=== PATIENT | female | born 1940 | race Caucasian/White ===

== ENCOUNTER 2016-09-10 22:29 | Inpatient (IN) | payer MEDICARE, OTHER ==
[~2016-09-10] VITALS: Ht 157.5 cm; Wt 68.9 kg
[2016-09-10] MEDS ORDERED: CEFTRIAXONE 1GM BAG (ER ONLY) 50 ML IV ONE ×2 (23:00→23:35)
[2016-09-10] MEDS ORDERED: IV SET PRIMARY 1 EA INFUS.SET MC ONE ×2 (23:13→23:34)
[2016-09-10] MEDS ORDERED: IV NS 0.9% 1,000 ML ONE ×2 (23:13→23:34)
[2016-09-10 23:26] LABS: BASOPHILS % (AUTO) 0.1 % (0.0-2.0); DIFF TOTAL % 100 %; HEMATOCRIT 33 % (33-45); HEMOGLOBIN 10.6 g/dL (11.5-14.8); LYMPHOCYTES # (AUTO) 0.8 /CMM (0.8-4.8); LYMPHOCYTES % (AUTO) 4.7 % (20.0-44.0); MEAN CORPUSCULAR HEMOGLOBIN 30 PG (26.0-33.0); MEAN CORPUSCULAR HGB CONC 33 g/dl (31.0-36.0); MEAN CORPUSCULAR VOLUME 94 fL (82-100); MONOCYTES # (AUTO) 1.1 /CMM (0.1-1.30); MONOCYTES % (AUTO) 6.4 % (2.0-12.0); NEUTROPHILS # (AUTO) 15.9 /CMM (1.8-8.9); NEUTROPHILS % (AUTO) 88.8 % (43.0-81.0); PLATELET COUNT (AUTO) 232 /CMM (150-450); RED BLOOD CELL COUNT(AUTO) 3.47 MIL/uL (4.0-5.2); WHITE BLOOD COUNT (AUTO) 17.9 K/uL (4.3-11.0)
[2016-09-10] MEDS ORDERED: IV NS 0.9% 1,000 ML BAG IV ONE (23:30)
[2016-09-10] MEDS ORDERED: IV SET PRIMARY PUMP SET 1 EA INFUS.SET MC ONE (23:35)
[2016-09-10] MEDS ORDERED: SECONDARY IV SET 1 EA INFUS.SET MC ONE (23:35)
[2016-09-10] MEDS ORDERED: IV NS 0.9% 250 ML IV ONE (23:35)
[2016-09-10 23:47] LABS: TROPONIN I 0.094 ng/mL (0.00-0.056)
[2016-09-10 23:54] LABS: KETONES,URINE NEGATIVE (NEGATIVE); LEUKOCYTE ESTERASE ,URINE 2+ (NEGATIVE); PH,URINE 7.5 (5.0-8.0)
[2016-09-10 23:56] LABS: ALANINE AMINOTRANSFERASE 303 U/L (12-78); ALBUMIN 2.1 g/dL (3.4-5.0); ANION GAP 18 (5-14); ASPARTATE AMINOTRANSFERASE 493 U/L (15-37); BILIRUBIN,DIRECT 0.7 mg/dL (0.0-0.2); BILIRUBIN,TOTAL 1.1 mg/dL (0.2-1.0); CALCIUM, SERUM 8.1 mg/dL (8.5-10.1); CARBON DIOXIDE 22 mmol/L (21-32); CHLORIDE 91 mmol/L (98-107); CREATININE 4.6 mg/dL (0.6-1.3); GLUCOSE 74 mg/dL (74-106); INDIRECT BILIRUBIN 0.4 mg/dL (0.0-1.1); POTASSIUM 5.5 mmol/L (3.5-5.1); SODIUM SERUM 125 mmol/L (136-145); TOTAL PROTEIN, SERUM 5.8 g/dL (6.4-8.2)
[2016-09-10 23:56] LABS: ADD UA MICROSCOPIC YES
[2016-09-10 23:58] LABS: INR 1.11 (0.87-1.13); UREA NITROGEN, BLOOD 82 mg/dL (7-18)
[2016-09-10 23:59] LABS: LACTIC ACID 2.7 mmol/L (0.4-2.0)
[2016-09-11] VITALS (72 sets, daily range): BP systolic 79–138; BP diastolic 23–97
[2016-09-11 00:03] LABS: RBC,URINE NONE SEEN /HPF (0-2)
[2016-09-11 00:04] LABS: ADD URINE CULTURE YES
[2016-09-11 00:18] LABS: *LACTIC ACID REFLEX FLAG YES
[2016-09-11] MEDS ORDERED: IMIPENEM/CILASTATIN 1,000 MG in IV NS 0.9% 250 ML IV ONE (00:30)
[2016-09-11] MEDS ORDERED: NOREPINEPHRINE 4 MG/4 ML AMPUL IV ONE (00:52)
[2016-09-11] MEDS ORDERED: IV D5W 500 ML IV ONE (00:53)
[2016-09-11] MEDS ORDERED: IV SET PRIMARY PUMP SET 1 EA INFUS.SET MC ONE ×5 (00:53→11:00)
[2016-09-11] MEDS ORDERED: NOREPINEPHRINE 8 MG in IV D5W 500 ML IV ONE (01:00)
[2016-09-11] MEDS ORDERED: IV NS 0.9% 250 ML IV ONE (01:34)
[2016-09-11] MEDS ORDERED: IMIPENEM/CILASTATIN 500 MG/VIAL IV ONE (01:34)
[2016-09-11] MEDS ORDERED: HYDROCODONE/APAP 5/325MG 1 EACH TABLET PO PRN (02:30)
[2016-09-11] MEDS ORDERED: MAG HYDROX/AL HYDROX/SIMETH 30 ML UDC PO PRN (02:30)
[2016-09-11] MEDS ORDERED: MAGNESIUM HYDROXIDE 30 ML UDC PO PRN (02:30)
[2016-09-11] MEDS ORDERED: Z GUARD REMEDY 2 OZ OINT TP PRN (02:30)
[2016-09-11] MEDS ORDERED: ONDANSETRON HCL/PF 4 MG/2 ML VIAL IVP PRN (02:30)
[2016-09-11] MEDS ORDERED: ZOLPIDEM TARTRATE 5 MG TABLET PO PRN (02:30)
[2016-09-11] MEDS ORDERED: ACETAMINOPHEN 325 MG TABLET PO PRN (02:30)
[2016-09-11] MEDS ORDERED: Calcium Gluconate 1GM/10ML 9.3 MEQ in IV D5W 250 ML IV ONE (04:00)
[2016-09-11] MEDS ORDERED: INSULIN REGULAR, HUMAN 100 UNIT/ML 10 ML VIAL IV ONE (04:00)
[2016-09-11] MEDS ORDERED: DEXTROSE 50%-WATER 50 ML DISP.SYRIN IVP ONE (04:00)
[2016-09-11] MEDS ORDERED: IV D5W 250 ML IV ONE (04:07)
[2016-09-11] MEDS ORDERED: Calcium Gluconate 0.465 MEQ/ML VIAL IV ONE (04:07)
[2016-09-11] MEDS ORDERED: DEXTROSE 50%-WATER 50 ML DISP.SYRIN ONE (04:08)
[2016-09-11] MEDS ORDERED: IV NS 0.9% 1,000 ML BAG IV ONE (04:30)
[2016-09-11] MEDS ORDERED: IV NS 0.9% 1,000 ML BAG IV PRN ×2 (04:30→07:00)
[2016-09-11] MEDS ORDERED: LORAZEPAM INJ 2 MG/ML VIAL IV PRN (05:00)
[2016-09-11] MEDS ORDERED: IMIPENEM/CILASTATIN 500 MG in IV NS 0.9% 100 ML IV SCH ×2 (06:00→08:00)
[2016-09-11 06:26] LABS: ALBUMIN 1.7 g/dL (3.4-5.0); BILIRUBIN,DIRECT 0.9 mg/dL (0.0-0.2); BILIRUBIN,TOTAL 1.1 mg/dL (0.2-1.0); INDIRECT BILIRUBIN 0.2 mg/dL (0.0-1.1); TOTAL PROTEIN, SERUM 4.9 g/dL (6.4-8.2)
[2016-09-11 06:35] LABS: LACTIC ACID 4.3 mmol/L (0.4-2.0)
[2016-09-11] MEDS ORDERED: NOREPINEPHRINE 16 MG in IV D5W 500 ML IV PRN (07:00)
[2016-09-11] MEDS ORDERED: PANTOPRAZOLE 40 MG TABLET.DR PO SCH (07:30)
[2016-09-11 08:09] LABS: CREATININE 4.1 mg/dL (0.6-1.3); POTASSIUM 4.3 mmol/L (3.5-5.1)
[2016-09-11] MEDS: PANTOPRAZOLE 40 MG VIAL IV SCH (08:40)
[2016-09-11] MEDS ORDERED: CYCL5TAB PO (09:11)
[2016-09-11] MEDS ORDERED: HYDR25TA4 PO (09:11)
[2016-09-11] MEDS ORDERED: FERR325T28 PO (09:11)
[2016-09-11] MEDS ORDERED: ZINC220C8 PO (09:11)
[2016-09-11] MEDS ORDERED: LIRA0.6P2 SQ (09:11)
[2016-09-11] MEDS ORDERED: METO25TA3 PO (09:11)
[2016-09-11] MEDS ORDERED: HYDR-3326 PO (09:11)
[2016-09-11] MEDS ORDERED: ASCO500T9 PO (09:11)
[2016-09-11] MEDS ORDERED: SERT100T12 PO (09:11)
[2016-09-11] MEDS ORDERED: CLOP75TA2 PO (09:11)
[2016-09-11] MEDS ORDERED: GABA-534 PO (09:11)
[2016-09-11] MEDS ORDERED: OMEP20CA10 PO (09:11)
[2016-09-11] MEDS ORDERED: ATOR40TA PO (09:11)
[2016-09-11] MEDS ORDERED: TRAV5DRO EACHEYE (09:11)
[2016-09-11] MEDS ORDERED: DIVA500T2 PO (09:11)
[2016-09-11] MEDS ORDERED: DARI15TA7 PO (09:11)
[2016-09-11] MEDS ORDERED: RANO500T3 PO (09:11)
[2016-09-11] MEDS ORDERED: ALIR75PE SQ (09:11)
[2016-09-11] MEDS ORDERED: AMLO5TAB2 PO (09:11)
[2016-09-11] MEDS ORDERED: LISI-603 PO (09:11)
[2016-09-11] MEDS ORDERED: ASPI81TA2 PO (09:11)
[2016-09-11 09:23] LABS: DIFF TOTAL % 100 %; HEMATOCRIT 28 % (33-45); HEMOGLOBIN 9.1 g/dL (11.5-14.8); LYMPHOCYTES # (AUTO) 0.3 /CMM (0.8-4.8); LYMPHOCYTES % (AUTO) 2.1 % (20.0-44.0); MEAN CORPUSCULAR HEMOGLOBIN 31 PG (26.0-33.0); MEAN CORPUSCULAR HGB CONC 33 g/dl (31.0-36.0); MEAN CORPUSCULAR VOLUME 93 fL (82-100); MONOCYTES # (AUTO) 0.3 /CMM (0.1-1.30); MONOCYTES % (AUTO) 2.4 % (2.0-12.0); NEUTROPHILS # (AUTO) 13.5 /CMM (1.8-8.9); NEUTROPHILS % (AUTO) 95.5 % (43.0-81.0); PLATELET COUNT (AUTO) 176 /CMM (150-450); RED BLOOD CELL COUNT(AUTO) 2.99 MIL/uL (4.0-5.2); WHITE BLOOD COUNT (AUTO) 14.1 K/uL (4.3-11.0)
[2016-09-11] MEDS ORDERED: HYDROGEL DRESSING 90 GM TUBE TP PRN (09:30)
[2016-09-11] MEDS ORDERED: SECONDARY IV SET 1 EA INFUS.SET MC ONE (09:36)
[2016-09-11] MEDS: LINEZOLID RTU BAG 600 MG in PREMIX 1 EA IV SCH ×2 (09:41→21:04)
[2016-09-11] MEDS: HYDROGEL DRESSING 90 GM TUBE TP SCH (10:28)
[2016-09-11] MEDS: ALBUMIN 25% 25 GM in PREMIX 1 EA IV SCH ×3 (10:28→21:02)
[2016-09-11] MEDS: NOREPINEPHRINE 16 MG in IV D5W 500 ML IV PRN ×2 (11:42→21:03)
[2016-09-11 12:04] LABS: ADD UA MICROSCOPIC YES; KETONES,URINE NEGATIVE (NEGATIVE); LEUKOCYTE ESTERASE ,URINE TRACE (NEGATIVE)
[2016-09-11 12:11] LABS: ADD URINE CULTURE YES; CREATININE, URINE 24.6 MG/DL (30.0-125.0); MUCUS,URINE Few /LPF (None Seen); URINE TOTAL PROTEIN 55.3 mg/dL (0-11.9)
[2016-09-11] MEDS: CLOTRIMAZOLE 1% 15 GM TUBE TP SCH (16:05)
[2016-09-11] MEDS: IV NS 0.9% 1,000 ML IV PRN (18:17)
[2016-09-11] MEDS: MEROPENEM 500 MG in IV NS 0.9% 50 ML IV SCH (23:38)
[2016-09-12] VITALS (74 sets, daily range): BP systolic 95–166; BP diastolic 26–90
[2016-09-12] MEDS: ALBUMIN 25% 25 GM in PREMIX 1 EA IV SCH (03:12)
[2016-09-12 05:14] LABS: LDL 8 mg/dL (0-99); TRIGLYCERIDES 158 mg/dL (30-150)
[2016-09-12 05:15] LABS: ANION GAP 19 (5-14); CALCIUM, SERUM 6.9 mg/dL (8.5-10.1); CARBON DIOXIDE 19 mmol/L (21-32); CHLORIDE 93 mmol/L (98-107); CREATININE 4.1 mg/dL (0.6-1.3); GLUCOSE 99 mg/dL (74-106); PHOSPHORUS 6.2 mg/dL (2.5-4.9); POTASSIUM 5.8 mmol/L (3.5-5.1); SODIUM SERUM 125 mmol/L (136-145); UREA NITROGEN, BLOOD 79 mg/dL (7-18)
[2016-09-12 05:19] LABS: HDL CHOLESTEROL < 10 mg/dL (40-60)
[2016-09-12 05:20] LABS: CHOLESTEROL < 50 mg/dL (<200)
[2016-09-12 07:04] LABS: DIFF TOTAL % 100 %; HEMATOCRIT 22 % (33-45); HEMOGLOBIN 7.5 g/dL (11.5-14.8); LYMPHOCYTES # (AUTO) 0.6 /CMM (0.8-4.8); LYMPHOCYTES % (AUTO) 5.1 % (20.0-44.0); MEAN CORPUSCULAR HEMOGLOBIN 31 PG (26.0-33.0); MEAN CORPUSCULAR HGB CONC 34 g/dl (31.0-36.0); MEAN CORPUSCULAR VOLUME 92 fL (82-100); MONOCYTES # (AUTO) 0.8 /CMM (0.1-1.30); MONOCYTES % (AUTO) 6.8 % (2.0-12.0); NEUTROPHILS # (AUTO) 10.3 /CMM (1.8-8.9); NEUTROPHILS % (AUTO) 88.1 % (43.0-81.0); PLATELET COUNT (AUTO) 92 /CMM (150-450); RED BLOOD CELL COUNT(AUTO) 2.41 MIL/uL (4.0-5.2); WHITE BLOOD COUNT (AUTO) 11.7 K/uL (4.3-11.0)
[2016-09-12] MEDS ORDERED: IV NS 0.9% 500 ML IV ONE (08:30)
[2016-09-12] MEDS: HYDROGEL DRESSING 90 GM TUBE TP SCH (08:44)
[2016-09-12] MEDS: LINEZOLID RTU BAG 600 MG in PREMIX 1 EA IV SCH ×2 (08:44→20:24)
[2016-09-12] MEDS: ASPIRIN 81 MG TAB.CHEW GT SCH (08:44)
[2016-09-12] MEDS: PANTOPRAZOLE 40 MG VIAL IV SCH (08:44)
[2016-09-12] MEDS: CLOTRIMAZOLE 1% 15 GM TUBE TP SCH ×2 (08:45→16:56)
[2016-09-12 09:53] LABS: ANISOCYTOSIS 2+; BAND % (MANUAL) 41 % (0.0-5.0); LYMPHOCYTES % (MANUAL) 2 % (16-48); PLATELET ESTIMATE DECREASED; POIKILOCYTOSIS 1+
[2016-09-12] MEDS ORDERED: GABAPENTIN 300 MG CAPSULE PO SCH (10:00)
[2016-09-12] MEDS ORDERED: ASPIRIN 81 MG TAB.CHEW PO SCH (10:00)
[2016-09-12] MEDS ORDERED: ATORVASTATIN 40 MG TABLET GT SCH ×2 (10:00→22:00)
[2016-09-12] MEDS ORDERED: SODIUM POLYSTYRENE SULFONATE 15 G/60 ML BOTTLE PO ONE (10:24)
[2016-09-12] MEDS ORDERED: TRAVOPROST (BENZALKONIUM) 2.5 ML BOTTLE EACHEYE SCH (10:30)
[2016-09-12] MEDS: DIVALPROEX SODIUM 125 MG CAP.SPRINK GT SCH ×2 (10:38→20:24)
[2016-09-12] MEDS: ZINC SULFATE 220 MG CAPSULE PO SCH (10:38)
[2016-09-12] MEDS: FERROUS SULFATE (325 MG) 325 MG/TAB TABLET PO SCH (10:39)
[2016-09-12] MEDS: GABAPENTIN 300 MG CAPSULE PO SCH (10:39)
[2016-09-12] MEDS: CLOPIDOGREL BISULFATE 75 MG TABLET PO SCH (10:39)
[2016-09-12] MEDS: ASCORBIC ACID 500 MG TABLET PO SCH (10:39)
[2016-09-12 10:58] LABS: KETONES,URINE 1+ (NEGATIVE); LEUKOCYTE ESTERASE ,URINE 2+ (NEGATIVE); PH,URINE 6.5 (5.0-8.0)
[2016-09-12 10:59] LABS: URINE SODIUM, RANDOM 11 mmol/l (40-220)
[2016-09-12 11:00] LABS: ADD UA MICROSCOPIC YES
[2016-09-12 11:15] LABS: ADD URINE CULTURE YES; RBC,URINE TOO NUMEROUS TO COUN /HPF (0-2)
[2016-09-12] MEDS: IV NS 0.9% 1,000 ML IV PRN (16:55)
[2016-09-12] MEDS: LACTOBACILLUS RHAMNOSUS GG 1 EACH CAP.SPRINK PO SCH (16:55)
[2016-09-12] MEDS: TRAVOPROST (BENZALKONIUM) 2.5 ML BOTTLE EACHEYE SCH (21:22)
[2016-09-12] MEDS: MEROPENEM 500 MG in IV NS 0.9% 50 ML IV SCH (22:32)
[2016-09-13] VITALS (26 sets, daily range): BP systolic 86–147; BP diastolic 22–90
[2016-09-13 04:31] LABS: BASOPHILS % (AUTO) 0.1 % (0.0-2.0); DIFF TOTAL % 100 %; EOSINOPHILS % (AUTO) 0.2 % (0.0-6.0); HEMATOCRIT 24 % (33-45); HEMOGLOBIN 7.8 g/dL (11.5-14.8); LYMPHOCYTES # (AUTO) 0.7 /CMM (0.8-4.8); LYMPHOCYTES % (AUTO) 3.3 % (20.0-44.0); MEAN CORPUSCULAR HEMOGLOBIN 30 PG (26.0-33.0); MEAN CORPUSCULAR HGB CONC 33 g/dl (31.0-36.0); MEAN CORPUSCULAR VOLUME 94 fL (82-100); MONOCYTES # (AUTO) 0.7 /CMM (0.1-1.30); MONOCYTES % (AUTO) 3.2 % (2.0-12.0); NEUTROPHILS # (AUTO) 20.4 /CMM (1.8-8.9); NEUTROPHILS % (AUTO) 93.2 % (43.0-81.0); PLATELET COUNT (AUTO) 102 /CMM (150-450); RED BLOOD CELL COUNT(AUTO) 2.56 MIL/uL (4.0-5.2); WHITE BLOOD COUNT (AUTO) 21.9 K/uL (4.3-11.0)
[2016-09-13 04:54] LABS: CALCIUM, SERUM 7.1 mg/dL (8.5-10.1); CREATININE 4.7 mg/dL (0.6-1.3); POTASSIUM 5.7 mmol/L (3.5-5.1)
[2016-09-13 05:12] LABS: PHOSPHORUS 8.4 mg/dL (2.5-4.9)
[2016-09-13 05:13] LABS: BAND % (MANUAL) 15 % (0.0-5.0); LYMPHOCYTES % (MANUAL) 12 % (16-48)
[2016-09-13 05:14] LABS: PLATELET ESTIMATE DECREASED
[2016-09-13 05:15] LABS: ANISOCYTOSIS 1+; BURR CELLS 1+; POIKILOCYTOSIS 1+
[2016-09-13] MEDS: LACTOBACILLUS RHAMNOSUS GG 1 EACH CAP.SPRINK PO SCH (08:36)
[2016-09-13] MEDS: FERROUS SULFATE (325 MG) 325 MG/TAB TABLET PO SCH (08:36)
[2016-09-13] MEDS: DIVALPROEX SODIUM 125 MG CAP.SPRINK GT SCH (08:36)
[2016-09-13] MEDS: ASPIRIN 81 MG TAB.CHEW GT SCH (08:36)
[2016-09-13] MEDS: ZINC SULFATE 220 MG CAPSULE PO SCH (08:36)
[2016-09-13] MEDS: ASCORBIC ACID 500 MG TABLET PO SCH (08:36)
[2016-09-13] MEDS: CLOPIDOGREL BISULFATE 75 MG TABLET PO SCH (08:36)
[2016-09-13] MEDS: PANTOPRAZOLE 40 MG VIAL IV SCH (08:36)
[2016-09-13] MEDS: CLOTRIMAZOLE 1% 15 GM TUBE TP SCH (08:37)
[2016-09-13] MEDS: HYDROGEL DRESSING 90 GM TUBE TP SCH (08:37)
[2016-09-13] MEDS: LINEZOLID RTU BAG 600 MG in PREMIX 1 EA IV SCH (08:38)
[2016-09-13] MEDS ORDERED: SECONDARY IV SET 1 EA INFUS.SET MC ONE (08:50)
[2016-09-13] MEDS ORDERED: FUROSEMIDE 100 MG/10 ML VIAL IV ONE (10:00)
[2016-09-13] MEDS ORDERED: METOLAZONE 2.5 MG TABLET PO ONE (10:00)
[2016-09-13] MEDS: GABAPENTIN 300 MG CAPSULE PO SCH (10:00)
[2016-09-13 10:17] LABS: ABG BASE EXCESS -15.3 mmol/L; ABG HCO3 13.5 mmol/L; ABG PCO2 45.2 mmHg (35.0-45.0); ABG PH 7.093 (7.350-7.450); ABG PO2 87.5 mmHg (75.0-100.0); ABG TOTAL HEMOGLOBIN 8.3 G/dL (12.0-16.0); ALLEN TEST Pass; AaDO2 580.3 mmHg; O2Hb 91.6 % (94.0-97.0)
[2016-09-13] MEDS ORDERED: SODIUM BICARBONATE SYR 50 MEQ/50 ML DISP.SYRIN IV ONE (10:30)
[2016-09-13] MEDS ORDERED: INSULIN REGULAR, HUMAN 100 UNIT/ML 3 ML VIAL IV ONE (11:00)
[2016-09-13] MEDS ORDERED: DEXTROSE 50%-WATER 50 ML DISP.SYRIN IVP ONE (11:00)
[2016-09-13] MEDS ORDERED: MORPHINE SULFATE PF DRIP 250 MG in IV D5W 240 ML IV PRN (14:00)
[2016-09-13] MEDS ORDERED: IV NS 0.9% 1,000 ML BAG IV PRN (14:00)
[2016-09-13] MEDS: LORAZEPAM INJ 2 MG/ML VIAL IV PRN ×2 (14:25→17:17)
[2016-09-13] MEDS ORDERED: SET PCA INFUSE SET 1 EA INFUS.SET MC ONE (14:31)
[2016-09-13] MEDS ORDERED: FUROSEMIDE 40 MG/4 ML VIAL IV SCH (17:00)
[2016-09-13] MEDS: TRAVOPROST (BENZALKONIUM) 2.5 ML BOTTLE EACHEYE SCH (22:00)
[2016-09-13] MEDS ORDERED: TRAVOPROST (BENZALKONIUM) 2.5 ML BOTTLE ONE (22:44)
== END 2016-09-13 23:15 | disposition expired | DRG 871 ==
LOC: ER 22:31 → ICU 09-11 01:50 → MEDSG2 09-13 17:30
PROVIDERS: ADMIT Family Medicine; ATTEND Family Medicine
PROC: 02HV33Z Insertion of Infusion Device into Superior Vena Cava, Percutaneous Approach (ICD-10-PCS; principal; 2016-09-11)
PROC: B548ZZA Ultrasonography of Superior Vena Cava, Guidance (ICD-10-PCS; 2016-09-11)
DX: A41.9 Sepsis, unspecified organism (principal); E43 Unspecified severe protein-calorie malnutrition; I21.4 Non-ST elevation (NSTEMI) myocardial infarction; I50.33 Acute on chronic diastolic (congestive) heart failure; N17.0 Acute kidney failure with tubular necrosis; K72.00 Acute and subacute hepatic failure without coma; R65.21 Severe sepsis with septic shock; G93.41 Metabolic encephalopathy; J69.0 Pneumonitis due to inhalation of food and vomit; E87.2 Acidosis; N17.9 Acute kidney failure, unspecified; I13.0 Hypertensive heart and chronic kidney disease with heart failure and stage 1 through stage 4 chronic kidney disease, or unspecified chronic kidney disease; N39.0 Urinary tract infection, site not specified; I48.92 Unspecified atrial flutter; I69.851 Hemiplegia and hemiparesis following other cerebrovascular disease affecting right dominant side; E22.2 Syndrome of inappropriate secretion of antidiuretic hormone; I50.1 Left ventricular failure, unspecified; E87.5 Hyperkalemia; I25.10 Atherosclerotic heart disease of native coronary artery without angina pectoris; N18.9 Chronic kidney disease, unspecified; Z95.1 Presence of aortocoronary bypass graft; Z66 Do not resuscitate; K82.8 Other specified diseases of gallbladder; E66.9 Obesity, unspecified; E78.5 Hyperlipidemia, unspecified; E86.9 Volume depletion, unspecified; I48.91 Unspecified atrial fibrillation; B96.1 Klebsiella pneumoniae [K. pneumoniae] as the cause of diseases classified elsewhere; B95.2 Enterococcus as the cause of diseases classified elsewhere; Z51.5 Encounter for palliative care; R74.0 Nonspecific elevation of levels of transaminase and lactic acid dehydrogenase [LDH]; Z68.27 Body mass index [BMI] 27.0-27.9, adult
CPT/HCPCS: 36415; 36600; 70450-TC; 71010-TC; 76705-TC; 80048-TC; 80061-TC; 80076-TC; 81000-TC; 82570-TC; 83605-TC; 83735-TC; 83880; 83935-TC; 84100-TC; 84155-TC; 84300-TC; 84484-TC; 85025-TC; 85730-TC; 87040-TC; 87081-TC; 87086-TC; 87186-TC; 93307-TC; A4216; A4606; A6248; A6402; C1751; C9113; J0610; J0696; J0743; J1815; J1940; J2020; J2060; J2185; J2274; J3490; J7030; J7040; J7050; J7060; P9047; Z7610